=== PATIENT | female | born 1955 | race Caucasian/White ===

== ENCOUNTER 2025-04-20 12:33 | Emergency (ER) | payer OTHER, SELFPAY ==
[2025-04-20 12:36] VITALS: BP 142/78
--- NOTE | 2025-04-20 13:36 | ED.GENMED ---
History of Present Illness
General
Chief Complaint: Skin Problem
Source: patient
Exam Limitations: none
Time Seen by Provider: 04/20/25 12:59
History of Present Illness
History of Present Illness:
69-year-old female presents with 2 weeks worth of worsening swelling redness and pain to the perineal area. She was seen by the family doctor today and sent here for evaluation of an abscess. She denies fevers. She is not a diabetic. She has not
been on any medications for this. She denies any drainage. No other complaint
Phy Exam
Physical Exam
Physical Exam:
General: Well-appearing female no acute respiratory distress
HEENT normal cephalic atraumatic
Heart: Regular rate and rhythm
Lungs: Clear no wheeze
Skin: Erythema fluctuance and induration noted over the left perineal area. No significant drainage. This is tender.
Sepsis
Sepsis Screening
Sepsis Assessment: Sepsis Ruled Out
Sepsis Screen
Sepsis Screen: Sepsis Ruled Out
Date: 04/20/25
Time: 13:41
Course
Vital Signs
Initial and Last Documented VS:
Initial Vital Signs
Temp Pulse Resp BP Pulse Ox
98.2 F 84 16 142/78 98
04/20/25 12:36 04/20/25 12:36 04/20/25 12:36 04/20/25 12:36 04/20/25 12:36
Last Documented Vital Signs
Temp Pulse Resp BP Pulse Ox
98.2 F 84 16 142/78 98
04/20/25 12:36 04/20/25 12:36 04/20/25 12:36 04/20/25 12:36 04/20/25 12:36
MDM/Problems Addressed
Differential Diagnosis Includes:
Exam most consistent with abscess. Patient appears nontoxic otherwise stable vital signs. Do not suspect sepsis. Discussion was had with treatment options. Patient consented to incision and drainage. Please note the entire history physical and
procedure was performed with female nurseTeresa as a bill adjuster in the room
The area was cleansed with Betadine and anesthetized with 1% lidocaine with epinephrine. 11 blade scalpel was used to incise the area of fluctuance. A moderate mount of purulent material was returned. Loculations were broken up using blunt
dissection with a needle drivers. This was then irrigated with saline and gauze was applied. Wound care instructions were given and she will be started on antibiotics. Stable for discharge
*Pulse Oximetry
SaO2: 98
Oxygen Mode of Delivery: Room air
Patient hypoxic: no
*Critical Care Note
Total Time (30-74mins, 75-104mins- exclusive of procedures): Not Applicable
ED Attending Note
-
Portions of this chart may have been created with voice recognition software.� Occasional wrong word or��sound alike� substitutions may have occurred due to the inherent limitations of voice recognition software.
Discharge Plan
Departure
Patient Disposition: Home (Routine Discharge)
Date of Disposition: 04/20/25
Time of Disposition: 13:39
Patient with high blood pressure during this ER visit?: No
Discharge Problem:
Abscess
Instructions: Skin Abscess
Prescriptions:
New
clindamycin HCl [Cleocin HCl] 300 mg capsule
300 mg PO TID Qty: 21 0RF
No Action
clonazepam [Klonopin] 0.5 mg Tablet,Disintegrating
0.5 mg PO DAILY
Referrals:
Kari Randall MD [Family Provider, Internal Medicine]
Activity Restrictions/Additional Instructions:
Continue with warm soaks or compresses. Wash with warm soapy water. Take antibiotic as directed. Continue to use probiotics. Return here for increasing pain swelling fever or other concerning findings.
Interventions
Interventions:
*Risk Screen - Suicide Last Done: 04/20/25 12:36
*Neglect/Abuse Screening Last Done: 04/20/25 12:36
ED-Skin Assessment Last Done: 04/20/25 13:14
Discharge Date and Time
Print Language: FIJIAN
== END 2025-04-20 13:53 | disposition home or self-care (01) ==
LOC: EMR 12:33
PROVIDERS: EMERGENCY PHYSICIAN Emergency Medicine; FAMILY PHYSICIAN Internal Medicine
DX: K61.0 Anal abscess (principal)
CPT/HCPCS: 46050; 99283